=== PATIENT | male | born 1955 | race Hispanic/Latino ===

== ENCOUNTER → 2022-08-21 | Outpatient (CLI) | payer MEDICARE ==
[~2022-08-21] MED LIST: REGADENOSON 0.4 MG/5 ML SYR IV ONE
== END ==
LOC: NM 06:45
PROVIDERS: ATTEND Internal Medicine Cardiovascular Disease
DX: Z01.810 Encounter for preprocedural cardiovascular examination (principal); R06.02 Shortness of breath; R07.9 Chest pain, unspecified; R94.31 Abnormal electrocardiogram [ECG] [EKG]
CPT/HCPCS: 78452; 93017; A9502; J2785